=== PATIENT | female | born 1945 | race American Indian/Alaskan Native ===

== ENCOUNTER 2016-10-05 11:51 | Outpatient (CLI) | payer MEDICARE, OTHER ==
--- NOTE | 2016-10-06 10:44 | Mammography Report ---
Bilateral mammogram: Compared to 03/21/10. CAD study utilized. Findings: Redemonstrated post tissue bilaterally. No mass. Cluster of new calcifications upper posterior right breast. Normal axilla. Impression: Cluster of new calcifications right breast. Recommend spot magnification views. BI-RADS CATEGORY: 0 = Needs additional imaging evaluation ACR BI-RADS MAMMOGRAPHIC CODES: 0 = Needs additional imaging evaluation; 1 = Negative; 2 = Benign; 3 = Probably benign; 4 = Suspicious; 5 = Malignant; 6 = Known biopsy-proven malignancy COMMENT: 1. Dense breast tissue, i.e., adenosis, fibrocystic changes, etc., may obscure an underlying neoplasm. 2. Approximately 10% of cancers are not detected with mammography. 3. A negative mammography report should not delay biopsy if a clinically suspicious mass is present. COMMENT: Patient follow-up letters are generated in [employer].
== END 2016-10-05 11:52 | disposition home or self-care (01) ==
LOC: MAMMO 11:51
PROVIDERS: ATTEND Family Medicine
DX: Z12.31 Encounter for screening mammogram for malignant neoplasm of breast (principal)
CPT/HCPCS: 77067; G0202